=== PATIENT | male | born 1940 | race Caucasian/White ===

== ENCOUNTER → 2023-12-17 | Outpatient (CLI) | payer MEDICARE ==
--- NOTE | 2023-12-17 11:49 | US ---
EXAMINATION TYPE: US abdomen limited DATE OF EXAM: 12/17/2023 COMPARISON: NONE CLINICAL INDICATION: Male, 83 years old with history of R18.8 OTHER ASCITES; Patient states office fe lt he gained more weight, he disagrees but has some abdominal fullness. FINDINGS/IMPRESSION: All four quadrants scanned with no fluid collections seen. No ascites identified . [facility], , 12/17/2023 11:46 AM
== END | disposition home or self-care (01) ==
LOC: RADUSWWP 09:57
PROVIDERS: ATTEND Family Medicine
DX: R18.8 Other ascites (principal)
CPT/HCPCS: 76705

== ENCOUNTER → 2024-02-03 | Outpatient (CLI) | payer MEDICARE ==
--- NOTE | 2024-02-04 08:42 | US ---
EXAMINATION TYPE: US abdomen limited DATE OF EXAM: 02/03/2024 COMPARISON: NONE CLINICAL INDICATION: Male, 83 years old with history of K40.90 INGUINAL HERNIA LEFT; LLQ palp x 1 mon th TECHNIQUE: Grayscale with or without color Doppler imaging of the area of hernia concern. Real-time scanning was performed by the jewish history professor utilizing Valsalva and additional dynamic maneuve rs to assess for hernia. FINDINGS: Assess for hernia at location of: patients area of concern corresponds to spigelian area there is a 11.2x1.5x6.6cm fat and peristalsing bowel containing hernia at patients palpable area with a neck measuring up to 2.7 cm. The hernia is exaggerated with valsalva maneuver and partially reduci ble with transducer compression IMPRESSION: Hernia as above. [facility], , 02/04/2024 8:40 AM
== END | disposition home or self-care (01) ==
LOC: RADUSWWP 15:03
PROVIDERS: ATTEND Family Medicine
DX: K40.90 Unilateral inguinal hernia, without obstruction or gangrene, not specified as recurrent (principal)
CPT/HCPCS: 76705

== ENCOUNTER → 2024-06-09 | Outpatient (CLI) | payer MEDICARE ==
[2024-06-09 14:03] LABS: African American GFR (CKD) 46 (>60 ml/min/1.73 sqM); Blood Urea Nitrogen 29 mg/dL (9-20); Non-African American GFR(CKD) 39 (>60 ml/min/1.73 sqM)
--- NOTE | 2024-06-09 14:59 | CT ---
EXAMINATION TYPE: CT abdomen pelvis w con DATE OF EXAM: 06/09/2024 COMPARISON: None CLINICAL INDICATION: Male, 84 years old with history of K57.32 DVTRCLI R19.00 STOMACH MASS; PHH, abdo sincere mass, diverticulitis TECHNIQUE: Performed with Oral Contrast and with IV Contrast, patient injected with 80 ml mL of Isovue 300. CT DLP: [address] CTDI: mGy Automated exposure control for dose reduction was used. Findings: The lung bases are clear. There is a small hiatal hernia. The gallbladder is normal without distention, wall thickening, pericholecystic fluid or gallstones. T here is no biliary ductal dilatation. There is no focal mass or organomegaly involving the liver, pancreas, spleen or adrenal glands. There is no solid renal mass or hydronephrosis and there is homogeneous contrast enhancement of the r enal parenchyma. The caliber the abdominal aorta is normal is no retroperitoneal adenopathy or hemorrhage. There is a n IVC filter which appears to be in satisfactory position. The mid to proximal small bowel is mildly dilated consistent with a partial bowel obstruction. There is a left lower quadrant hernia measuring approximate 8.9 cm. It contains multiple small bowel loops but there is no evidence of strangulation. The dilated small bowel is proximal to the hernia and ther efore is likely the cause of the partial small bowel obstruction. There is a 4.2 cm left indirect inguinal hernia containing fluid but no bowel. There is no free intraperitoneal air. No pelvic mass, free fluid, abscess or adenopathy. There is mild prostatic hypertrophy. The osseous structures and soft tissues are intact. IMPRESSION: 1. Partial small bowel obstruction likely secondary to the left lower quadrant hernia containing nons trangulated or dilated loops of bowel. 2. Small hiatal hernia. 3. Left inguinal hernia containing fluid but no bowel loops. 4. Mild prostatic hypertrophy [facility], , 06/09/2024 2:57 PM
== END | disposition home or self-care (01) ==
LOC: RADCTMAIN 12:37
PROVIDERS: ATTEND Surgery
DX: K57.32 Diverticulitis of large intestine without perforation or abscess without bleeding (principal); K44.9 Diaphragmatic hernia without obstruction or gangrene; K40.90 Unilateral inguinal hernia, without obstruction or gangrene, not specified as recurrent; N40.0 Benign prostatic hyperplasia without lower urinary tract symptoms; K56.600 Partial intestinal obstruction, unspecified as to cause
CPT/HCPCS: 82565; 84520; 74177; 36415; Q9967

== ENCOUNTER 2024-06-16 09:31 | Observation (INO) | payer MEDICARE ==
--- NOTE | 2024-06-16 10:14 | ED ---
GI Bleed HPI - General Chief complaint: GI Bleed Stated complaint: NVD/HERNIA Time Seen by Provider: 06/16/24 09:50 Source: patient, RN notes reviewed Mode of arrival: ambulatory Limitations: no limitations - History of Present Illness Initial comments: This is an 84-year-old male presenting with LLQ pain (11/16) and blood in stool this morning. Patient was sent in by his PCP, Dr. Willis. States symptoms originally began February 09, 2024. Endorses "slimy liquid" and blood in stool and associated "gas pain" described as sharp, intermittent that resolves with Gas-X. Patient endorses receiving CT scan on 06/09/2024 with discovery of LLQ partial small bowel obstruction, left inguinal hernia and hiatal hernia. Patient endorses use of warfarin. MD complaint: blood streaked stool Onset/Timin -: days(s) Severity scale (1-10): 9 Improves with: medication (Gas-X) Context: other (History of hernia) Associated Symptoms: abdominal pain Treatments Prior to Arrival: OTC meds - Related Data Home Medications Medication Instructions Recorded Confirmed Atorvastatin [Lipitor] 80 mg PO HS 06/16/24 06/16/24 Fluticasone/Umeclidin/Vilanter 1 puff INHALATION RT-DAILY 06/16/24 06/16/24 [Trelegy Ellipta 100-62.5-25] Furosemide [Lasix] 20 mg PO DAILY 06/16/24 06/16/24 Metoprolol Succinate [Metoprolol 25 mg PO HS 06/16/24 06/16/24 Succinate ER] Warfarin [Coumadin] 3 mg PO SUMOWETHSA 06/16/24 06/16/24 Warfarin [Coumadin] 4.5 mg PO TU 06/16/24 06/16/24 amLODIPine [Norvasc] 5 mg PO DAILY 06/16/24 06/16/24 Previous Rx's Medication Instructions Recorded Simethicone [Gas-X] 125 mg PO Q6H PRN #30 capsule 06/16/24 Allergies Allergy/AdvReac Type Severity Reaction Status Date / Time No Known Allergies Allergy Verified 06/16/24 16:41 Review of Systems ROS Statement: Those systems with pertinent positive or pertinent negative responses have been documented in the HPI. ROS Other: All systems not noted in ROS Statement are negative. Past Medical History Past Medical History: Hyperlipidemia, Hypertension, Myocardial Infarction ([place]) Additional Past Medical History / Comment(s): hernia Past Surgical History: Heart Catheterization With Stent, Joint Replacement Past Psychological History: No Psychological Hx Reported Smoking Status: Current every day smoker Past Alcohol Use History: None Reported Past Drug Use History: None Reported General Exam Limitations: no limitations General appearance: alert, in no apparent distress Head exam: Present: atraumatic, normocephalic, normal inspection Eye exam: Present: normal appearance, PERRL, EOMI. Absent: scleral icterus, conjunctival injection, periorbital swelling ENT exam: Present: normal exam, mucous membranes moist Neck exam: Present: normal inspection. Absent: tenderness, meningismus, lymphadenopathy Respiratory exam: Present: normal lung sounds bilaterally. Absent: respiratory distress, wheezes, rales, rhonchi, stridor Cardiovascular Exam: Present: regular rate, normal rhythm, normal heart sounds. Absent: systolic murmur, diastolic murmur, rubs, gallop, clicks GI/Abdominal exam: Present: soft, tenderness (Positive LLQ TTP with voluntary guarding. Nontender throughout remainder of abdomen), guarding, normal bowel sounds, hernia (Palpable inguinal hernia with minor tenderness that seems to be reducible). Absent: distended, rebound, rigid Rectal exam: Present: normal rectal tone, heme (+) stool, bloody stool. Absent: fecal impaction, hemorrhoids, tenderness Extremities exam: Present: normal inspection, full ROM, normal capillary refill. Absent: tenderness, pedal edema, joint swelling, calf tenderness Back exam: Present: normal inspection Neurological exam: Present: alert, oriented X3, CN II-XII intact Psychiatric exam: Present: normal affect, normal mood Skin exam: Present: warm, dry, intact, normal color. Absent: rash Course Vital Signs 06/16/24 06/16/24 06/16/24 09:50 16:00 18:19 Temperature 97.4 F L 97.9 F 97.8 F Pulse Rate 70 60 69 Respiratory 22 16 Rate Blood Pressure 123/70 134/72 116/68 O2 Sat by Pulse 95 96 95 Oximetry Medical Decision Making - Medical Decision Making Was pt. sent in by a medical professional or institution (, PA, SPECIAL DEPUTY SHERIFF, urgent care, hospital, or long term...) When possible be specific @ -Dr. Willis Did you speak to anyone other than the patient for history (EMS, parent, family, police, friend...)? What history was obtained from this source @ -No Did you review nursing and triage notes (agree or disagree)? Why? @ -I reviewed and agree with nursing and triage notes Were old charts reviewed (outside hosp., previous admission, EMS record, old EKG, old radiological studies, urgent care reports/EKG's, long term records)? Report findings @ -Abdominal/pelvic CT from 06/09/2024 reviewed, indicating LLQ SBO and inguinal hernia Differential Diagnosis (chest pain, altered mental status, abdominal pain women, abdominal pain men, vaginal bleeding, weakness, fever, dyspnea, syncope, headache, dizziness, GI bleed, back pain, seizure, CVA, palpatations, mental health, musculoskeletal)? @ -Differential Abdominal Pain Men: Appendicitis, cholecystitis, diverticulosis, ischemic bowel, pancreatitis, hepatitis, UTI, gastroenteritis, AAA, incarcerated hernia, bowel obstruction, constipation, inflammatory bowel, hepatitis, peptic ulcer disease, splenic infarction, perforated viscus, testicular torsion, this is not meant to be an all-inclusive list Differential GI Bleed: Esophageal varices, aortoenteric fistula, Pascale-Huang, gastritis, peptic ulcer disease, diverticulosis, inflammatory bowel disease, hemorrhoids, fissure, colitis, malignancy, Meckel's diverticulum, this is not meant to be an all- inclusive list. EKG interpreted by me (3pts min.). @ -Not done X-rays interpreted by me (1pt min.). @ -None done CT interpreted by me (1pt min.). @ -Abdomen/pelvic CT shows LLQ hernia with focal mild acute diverticulitis at the same level with no indications of bowel obstruction. U/S interpreted by me (1pt. min.). @ -None done What testing was considered but not performed or refused? (CT, X-rays, U/S, labs)? Why? @ -None What meds were considered but not given or refused? Why? @ -None Did you discuss the management of the patient with other professionals (professionals i.e. , PA, SPECIAL DEPUTY SHERIFF, lab, RT, psych nurse, social work msw, retail maintenance technician, teacher, chief marketing officer, case finishing machine adjuster)? Give summary @ -Spoke to Dr. Willis who advised repeat CT and requesting and personally evaluated patient before deciding to admit patient. Spoke to Dr. Fletcher from [facility] regarding patient admission. Was smoking cessation discussed for >3mins.? @ -No Was critical care preformed (if so, how long)? @ -No Were there social determinants of health that impacted care today? How? (Homelessness, low income, unemployed, alcoholism, drug addiction, transportation, low edu. Level, literacy, decrease access to med. care, skilled nursing, rehab)? @ -No Was there de-escalation of care discussed even if they declined (Discuss DNR or withdrawal of care, Hospice)? DNR status @ -No What co-morbidities impacted this encounter? (DM, HTN, Smoking, COPD, CAD, Cancer, CVA, ARF, Chemo, Hep., AIDS, mental health diagnosis, sleep apnea, morbid obesity)? @ -None Was patient admitted / discharged? Hospital course, mention meds given and route, prescriptions, significant lab abnormalities, going to OR and other pertinent info. @ -Lab work shows INR 2.8, BUN 23 and positive stool occult blood. Spoke to Dr. Willis by phone who advised repeat CT for patient. Abdomen/pelvic CT shows LLQ hernia with focal mild acute diverticulitis at the same level with no indications of bowel obstruction. Patient initially provided IV normal saline and later provided p.o. Mylicon upon request for pain. Spoke to Dr. Willis again who personally evaluated patient, advising admission of patient under his care. Dr. Fletcher from [facility] notified of patient admission under Dr. Willis. Discussed patient with Dr. Thorne. Undiagnosed new problem with uncertain prognosis? @ -No Drug Therapy requiring intensive monitoring for toxicity (Heparin, Nitro, Ins ulin, Cardizem)? @ -No Were any procedures done? @ -No Diagnosis/symptom? @ -Diverticulitis Acute, or Chronic, or Acute on Chronic? @ -Acute on chronic Uncomplicated (without systemic symptoms) or Complicated (systemic symptoms)? @ -Complicated Side effects of treatment? @ -No Exacerbation, Progression, or Severe Exacerbation? @ -Exacerbation Poses a threat to life or bodily function? How? (Chest pain, [place], [place], pneumonia, PE, COPD, DKA, ARF, appy, cholecystitis, CVA, Diverticulitis, Homicidal, S uicidal, threat to staff... and all critical care pts) @ -Diverticulitis - Lab Data Result diagrams: 06/16/24 10:55 06/16/24 10:55 Lab Results 06/16/24 06/16/24 06/16/24 Range/Units 10:55 10:55 10:55 WBC 5.92 (4.50-10.00) 10*3/uL RBC 5.35 (4.40-5.60) 10*6/uL Hgb 16.2 (13.0-17.0) g/dL Hct 47.5 (39.6-50.0) % MCV 88.8 (80.0-97.0) fL MCH 30.3 (27.0-32.0) pg MCHC 34.1 (32.0-37.0) g/dL Plt Count 250 (140-440) 10*3/uL MPV 9.6 (9.5-12.2) fL Immature Gran % (Auto) 0.3 % Neutrophils % 66.0 % Lymphocytes % 18.2 % Monocytes % 10.1 % Eosinophils % 4.2 % Basophils % 1.2 % Immature Gran # 0.02 (0.00-0.04) 10*3/uL Neutrophils # 3.90 (1.80-7.70) 10*3/uL Lymphocytes # 1.08 (0.90-5.00) 10*3/uL Monocytes # 0.60 (0.20-1.00) 10*3/uL Eosinophils # 0.25 (0.04-0.35) 10*3/uL Basophils # 0.07 (0.00-0.10) 10*3/uL PT 28.2 H (10.0-12.5) sec INR 2.8 H (<1.2) APTT 30.9 H (22.0-30.0) sec Sodium 136 L (137-145) mmol/L Potassium 4.3 (3.5-5.1) mmol/L Chloride 104 (98-107) mmol/L Carbon Dioxide 26 (22-30) mmol/L Anion Gap 6 mmol/L BUN 23 H (9-20) mg/dL Creatinine 1.24 (0.66-1.25) mg/dL Est GFR (CKD-EPI)AfAm 62 (>60 ml/min/1.73 sqM) Est GFR (CKD-EPI)NonAf 53 (>60 ml/min/1.73 sqM) Glucose 99 (74-99) mg/dL Plasma Lactic Acid Luis Alfredo (0.7-2.0) mmol/L Calcium 9.8 (8.4-10.2) mg/dL Total Bilirubin 0.8 (0.2-1.3) mg/dL AST 36 (17-59) U/L ALT 30 (4-49) U/L Alkaline Phosphatase 75 (38-126) U/L Total Protein 6.7 (6.3-8.2) g/dL Albumin 3.9 (3.5-5.0) g/dL Stool Occult Blood (Negative) Blood Type Blood Type Confirm Blood Type Recheck Bld Type Recheck Status Antibody Screen Spec Expiration Date 06/16/24 06/16/24 06/16/24 Range/Units 10:55 11:02 11:05 WBC (4.50-10.00) 10*3/uL RBC (4.40-5.60) 10*6/uL Hgb (13.0-17.0) g/dL Hct (39.6-50.0) % MCV (80.0-97.0) fL MCH (27.0-32.0) pg MCHC (32.0-37.0) g/dL Plt Count (140-440) 10*3/uL MPV (9.5-12.2) fL Immature Gran % (Auto) % Neutrophils % % Lymphocytes % % Monocytes % % Eosinophils % % Basophils % % Immature Gran # (0.00-0.04) 10*3/uL Neutrophils # (1.80-7.70) 10*3/uL Lymphocytes # (0.90-5.00) 10*3/uL Monocytes # (0.20-1.00) 10*3/uL Eosinophils # (0.04-0.35) 10*3/uL Basophils # (0.00-0.10) 10*3/uL PT (10.0-12.5) sec INR (<1.2) APTT (22.0-30.0) sec Sodium (137-145) mmol/L Potassium (3.5-5.1) mmol/L Chloride (98-107) mmol/L Carbon Dioxide (22-30) mmol/L Anion Gap mmol/L BUN (9-20) mg/dL Creatinine (0.66-1.25) mg/dL Est GFR (CKD-EPI)AfAm (>60 ml/min/1.73 sqM) Est GFR (CKD-EPI)NonAf (>60 ml/min/1.73 sqM) Glucose (74-99) mg/dL Plasma Lactic Acid Luis Alfredo 1.6 (0.7-2.0) mmol/L Calcium (8.4-10.2) mg/dL Total Bilirubin (0.2-1.3) mg/dL AST (17-59) U/L ALT (4-49) U/L Alkaline Phosphatase (38-126) U/L Total Protein (6.3-8.2) g/dL Albumin (3.5-5.0) g/dL Stool Occult Blood positive (Negative) Blood Type A Negative Blood Type Confirm Blood Type Recheck No Previous Record Bld Type Recheck Status CABO Indicated Antibody Screen NEGATIVE Spec Expiration Date 06/19/2024 - 230406/16/24 Range/Units 11:12 WBC (4.50-10.00) 10*3/uL RBC (4.40-5.60) 10*6/uL Hgb (13.0-17.0) g/dL Hct (39.6-50.0) % MCV (80.0-97.0) fL MCH (27.0-32.0) pg MCHC (32.0-37.0) g/dL Plt Count (140-440) 10*3/uL MPV (9.5-12.2) fL Immature Gran % (Auto) % Neutrophils % % Lymphocytes % % Monocytes % % Eosinophils % % Basophils % % Immature Gran # (0.00-0.04) 10*3/uL Neutrophils # (1.80-7.70) 10*3/uL Lymphocytes # (0.90-5.00) 10*3/uL Monocytes # (0.20-1.00) 10*3/uL Eosinophils # (0.04-0.35) 10*3/uL Basophils # (0.00-0.10) 10*3/uL PT (10.0-12.5) sec INR (<1.2) APTT (22.0-30.0) sec Sodium (137-145) mmol/L Potassium (3.5-5.1) mmol/L Chloride (98-107) mmol/L Carbon Dioxide (22-30) mmol/L Anion Gap mmol/L BUN (9-20) mg/dL Creatinine (0.66-1.25) mg/dL Est GFR (CKD-EPI)AfAm (>60 ml/min/1.73 sqM) Est GFR (CKD-EPI)NonAf (>60 ml/min/1.73 sqM) Glucose (74-99) mg/dL Plasma Lactic Acid Luis Alfredo (0.7-2.0) mmol/L Calcium (8.4-10.2) mg/dL Total Bilirubin (0.2-1.3) mg/dL AST (17-59) U/L ALT (4-49) U/L Alkaline Phosphatase (38-126) U/L Total Protein (6.3-8.2) g/dL Albumin (3.5-5.0) g/dL Stool Occult Blood (Negative) Blood Type Blood Type Confirm A Negative Blood Type Recheck Bld Type Recheck Status Antibody Screen Spec Expiration Date Disposition Clinical Impression: Diverticulitis Disposition: ADMITTED IP TO THIS [facility] Condition: Good Is patient prescribed a controlled substance at d/c from ED?: No Time of Disposition: 15:02 Decision Date: 06/16/24 Decision Time: 15:02
[2024-06-16 11:03] LABS: Basophils # (A) 0.07 10*3/uL (0.00-0.10); Basophils % (A) 1.2 %; Eosinophils # (A) 0.25 10*3/uL (0.04-0.35); Eosinophils % (A) 4.2 %; HCT 47.5 % (39.6-50.0); HGB 16.2 g/dL (13.0-17.0); Lymphocytes # (A) 1.08 10*3/uL (0.90-5.00); Lymphocytes % (A) 18.2 %; MCH 30.3 pg (27.0-32.0); MCHC 34.1 g/dL (32.0-37.0); MCV 88.8 fL (80.0-97.0); Mean Platelet Volume 9.6 fL (9.5-12.2); Monocytes % (A) 10.1 %; Platelet Count 250 10*3/uL (140-440); RBC 5.35 10*6/uL (4.40-5.60); RDW 15.2 % (11.5-14.5); WBC 5.92 10*3/uL (4.50-10.00)
[2024-06-16 11:16] LABS: INR 2.8 (<1.2); Partial Thromboplastin Time 30.9 sec (22.0-30.0); Prothrombin Time 28.2 sec (10.0-12.5)
[2024-06-16] MEDS: SODIUM CHLORIDE 0.9% 1,000 ML IV STA (11:16)
[2024-06-16 11:18] LABS: ALT 30 U/L (4-49); AST 36 U/L (17-59); African American GFR (CKD) 62 (>60 ml/min/1.73 sqM); Albumin 3.9 g/dL (3.5-5.0); Alkaline Phosphatase 75 U/L (38-126); Anion Gap 6 mmol/L; Blood Urea Nitrogen 23 mg/dL (9-20); Calcium 9.8 mg/dL (8.4-10.2); Carbon Dioxide 26 mmol/L (22-30); Chloride 104 mmol/L (98-107); Glucose 99 mg/dL (74-99); Non-African American GFR(CKD) 53 (>60 ml/min/1.73 sqM); Potassium 4.3 mmol/L (3.5-5.1); Sodium 136 mmol/L (137-145); Total Bilirubin 0.8 mg/dL (0.2-1.3); Total Protein 6.7 g/dL (6.3-8.2)
--- NOTE | 2024-06-16 12:09 | CT ---
EXAMINATION TYPE: CT abdomen pelvis w con DATE OF EXAM: 06/16/2024 COMPARISON: CT one week ago CLINICAL INDICATION: Male, 84 years old with history of Hematochezia, LLQ pain, hematochezia, llq marky n, TECHNIQUE: CT scan of the abdomen and pelvis is performed with IV Contrast, patient injected with 100 ml mL of I sovue 300., (none if empty) Oral contrast used: without Oral Contrast (none if empty) CT DLP: 1048.7 mGycm, Automated exposure control for dose reduction was used. FINDINGS: LUNG BASES: No significant abnormality is appreciated. LIVER/GB: Internal density in the gallbladder likely reflects gallstones. This can be confirmed or be tter evaluated with ultrasound if desired. Gallbladder shows no new surrounding ill-defined fluid or fat stranding. PANCREAS: No significant abnormality is seen. SPLEEN: A few punctate calcifications throughout the spleen. There is curvilinear density or calcific ation along the superior outer aspect of the spleen. Correlate clinically. Suspect sutures from prior surgery ADRENALS: No significant abnormality is seen. KIDNEYS: There are a few small simple appearing thin-walled cysts scattered throughout the right kidn ey redemonstrated. No hydronephrosis seen bilaterally. BOWEL: Persistent incidental 3.7 cm duodenal sweep diverticulum next image 27. Persistent left lower quadrant hernia defect containing nondilated colon. A few diverticula at this level are present. Mild fat stranding is seen PROSTATE/SEMINAL VESICLES: No gross abnormality seen. LYMPH NODES: No greater than 1cm abdominal or pelvic lymph nodes are appreciated. OSSEOUS STRUCTURES: Metallic hardware from total right hip arthroplasty is redemonstrated causing str eak artifact somewhat limiting evaluation of pelvic structures. Persistent moderate to severe disc sp katharine narrowing at the lumbosacral junction. OTHER: Moderate to severe peripheral plaque of the aorta extends into branch vessels. Infrarenal IVC filter is redemonstrated. Persistent moderate to large size fat-containing left inguinal hernia witho ut fluid on current study. 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 No bowel obstruction. [facility], , 06/16/2024 12:07 PM
[2024-06-16] MEDS ORDERED: ACETAMINOPHEN TAB 325 MG TAB PO PRN (14:53)
[2024-06-16] MEDS ORDERED: traMADol 50 MG TAB PO PRN (14:53)
[2024-06-16] MEDS ORDERED: HYDROmorphone 0.5 MG/0.5 ML SYRINGE IVP PRN (14:53)
--- NOTE | 2024-06-16 15:06 | P.HPIM ---
History of Present Illness This is a pleasant 84 years old male with past medical history of multiple medical problems as below including history of coronary artery disease status post stent placement. Presents because of blood per rectum. Patient has been complaining from left lower quadrant abdominal pain for several weeks and months now has been followed by Dr. Baron. And today he started having bright red blood blood per rectum so he got concerned and came to the emergency room. He denies chest pain or dyspnea. No vomiting or diarrhea. No urinary complaint like urgency. He smokes 3 to 4 cigarettes/day and he was counseled to quit and he agrees but he declines nicotine patch. No alcohol or illicit drugs. Patient takes Coumadin 3 mg except 3.5 mg for his history of left leg DVT about 12 years ago He is hemodynamically stable and afebrile, mildly tachypneic. Hemoglobin 16.2, INR is 2.8 CT of the abdomen and pelvis showing moderate to severe peripheral plaque of the abdominal aorta extending into branching vessels. Also there is possible gallstone. Also there is infrarenal IVC filter in place. There is persistent left lower quadrant spigelian type hernia with focal mild acute diverticulitis. Occult blood in the stool is positive. Lactic acid 1.6. Review of Systems Review of systems CONSTITUTIONAL: No fever, no malaise, no fatigue. HEENT: No recent visual problems or hearing problems. Denied any sore throat. CARDIOVASCULAR: No orthopnea, PND, no palpitations, no syncope. PULMONARY: No shortness of breath, no cough, no hemoptysis. GASTROINTESTINAL: No diarrhea, no nausea, no vomiting, Normoactive bowel sounds. NEUROLOGICAL: No headaches, no weakness, no numbness. HEMATOLOGICAL: As above GENITOURINARY: Denies any burning micturition, frequency, or urgency. MUSCULOSKELETAL/RHEUMATOLOGICAL: Denies any joint pain, swelling, or any muscle pain. ENDOCRINE: Denies any polyuria or polydipsia. Past Medical History Past Medical History: Hyperlipidemia, Hypertension, Myocardial Infarction ([place]) Additional Past Medical History / Comment(s): hernia Past Surgical History: Heart Catheterization With Stent, Joint Replacement Past Psychological History: No Psychological Hx Reported Smoking Status: Current every day smoker Past Alcohol Use History: None Reported Past Drug Use History: None Reported Medications and Allergies Home Medications Medication Instructions Recorded Confirmed Type Simethicone [Gas-X] 125 mg PO Q6H PRN #30 capsule 06/16/24 Rx Allergies Allergy/AdvReac Type Severity Reaction Status Date / Time No Known Allergies Allergy Verified 06/16/24 09:56 Physical Exam Vitals: Vital Signs Temp Pulse Resp BP Pulse Ox 06/16/24 09:50 97.4 F L 70 22 123/70 95 Intake and Output 06/15/24 06/16/24 06/16/24 22:59 06:59 14:59 Other: Weight 81.647 kg GENERAL: The patient is alert and oriented x3, not in any acute distress. Well developed, well nourished. HEENT: Pupils are round and equally reacting to light. EOMI. No scleral icterus. No conjunctival pallor. Normocephalic, atraumatic. No pharyngeal erythema. No thyromegaly. CARDIOVASCULAR: S1 and S2 present. No murmurs, rubs, or gallops. -PULMONARY: Chest is clear to auscultation, no wheezing , no crackles. Mild tachypnea -ABDOMEN: Soft, LLQ tenderness, with mild guarding nondistended, normoactive bowel sounds. No palpable organomegaly. MUSCULOSKELETAL: No joint swelling or deformity. EXTREMITIES: No cyanosis, clubbing, or pedal edema. NEUROLOGICAL: Gross neurological examination did not reveal any focal deficits. SKIN: No rashes. no petechiae. Results CBC & Chem 7: 06/16/24 10:55 06/16/24 10:55 Labs: Abnormal Lab Results - Last 24 Hours (Table) 06/16/24 06/16/24 Range/Units 10:55 10:55 PT 28.2 H (10.0-12.5) sec INR 2.8 H (<1.2) APTT 30.9 H (22.0-30.0) sec Sodium 136 L (137-145) mmol/L BUN 23 H (9-20) mg/dL Assessment and Plan Assessment: Left lower quadrant spigelian type hernia with focal mild acute diverticulitis Bright red blood per rectum secondary to above Nicotine dependence Tachypnea, rule out COPD, rule out pneumonia. History of left leg DVT on Coumadin with therapeutic INR on admission Plan: Hold Coumadin Surgery team consult with Dr. Baron Bowel rest IV fluid Check chest x-ray Pain medication Labs and medication were reviewed.. Continue same treatment. Continue with symptomatic treatment. Resume home medication. Monitor labs and vitals. DVT and GI prophylaxis. Further recommendations as per clinical course of the patient DVT prophylaxis: Elevated INR GI Prophylaxis: Pepcid PT/OT: Pending Prognosis is guarded
[2024-06-16] MEDS ORDERED: NALOXONE 0.4 MG/ML 1 ML VIAL IV PRN ×2 (15:13→15:26)
--- NOTE | 2024-06-16 15:29 | P.GSHP ---
History of Present Illness H&P Date: 06/16/24 Chief Complaint: GI bleed 84-year-old male known to our service. Patient was seen in the office in the last 1 to 2 weeks with left lower quadrant pain and swelling. A CAT scan was ordered to evaluate the fascial defect suspected. 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 He had a CAT scan performed last week showing small bowel within the hernia. This was thought to be contributing to mild proximal small bowel dilation although the patient was not really having any nausea or vomiting. He does have intermittent constipation. Patient and I were in the process of setting up surgical repair. Today he called stating that he had some blood in his stools. He went to the ER with those complaints. He does think the hernia is hurting a bit more today than normal. CAT scan was repeated showing the small bowel no longer present within the spigelian hernia but now there is a small loop of sigmoid colon there. This does not appear to be obstructed. There is very subtle possible inflammation involving the sigmoid colon there and associated diverticulosis. Patient was started on IV antibiotics. White blood cell count normal. No fever. No tachycardia. Jose daugherty had primarily 1 bloody stool this morning. Patient has his jeans on and is walking around the hallway looking comfortable. INR elevated at 2.8. Patient is on blood thinners for history of previous left lower extremity DVT. - Review of Systems Comment: The patient denies any acute changes in vision or hearing, no dysphagia or odynophagia, no chest pain or shortness of breath, no dysuria or hematuria, no headache, no runny nose, no melena, no unexplained weight loss Past Medical History Past Medical History: Hyperlipidemia, Hypertension, Myocardial Infarction ([place]) Additional Past Medical History / Comment(s): hernia Past Surgical History: Heart Catheterization With Stent, Joint Replacement Past Psychological History: No Psychological Hx Reported Smoking Status: Current every day smoker Past Alcohol Use History: None Reported Past Drug Use History: None Reported Medications and Allergies Home Medications Medication Instructions Recorded Confirmed Type Simethicone [Gas-X] 125 mg PO Q6H PRN #30 capsule 06/16/24 Rx Allergies Allergy/AdvReac Type Severity Reaction Status Date / Time No Known Allergies Allergy Verified 06/16/24 09:56 Surgical - Exam Vital Signs Temp Pulse Resp BP Pulse Ox 97.4 F L 70 22 123/70 95 06/16/24 09:50 06/16/24 09:50 06/16/24 09:50 06/16/24 09:50 06/16/24 09:50 Physical exam: General: Well-developed, well-nourished HEENT: Normocephalic, sclerae nonicteric Abdomen: Reducible left-sided abdominal wall hernia, mild to moderate tenderness there, nondistended Extremities: No edema Neuro: Alert and oriented Results - Labs 06/16/24 10:55 06/16/24 10:55 Abnormal Lab Results - Last 24 Hours (Table) 06/16/24 06/16/24 Range/Units 10:55 10:55 PT 28.2 H (10.0-12.5) sec INR 2.8 H (<1.2) APTT 30.9 H (22.0-30.0) sec Sodium 136 L (137-145) mmol/L BUN 23 H (9-20) mg/dL Diabetes panel 06/16/24 Range/Units 10:55 Sodium 136 L (137-145) mmol/L Potassium 4.3 (3.5-5.1) mmol/L Chloride 104 (98-107) mmol/L Carbon Dioxide 26 (22-30) mmol/L BUN 23 H (9-20) mg/dL Creatinine 1.24 (0.66-1.25) mg/dL Glucose 99 (74-99) mg/dL Calcium 9.8 (8.4-10.2) mg/dL AST 36 (17-59) U/L ALT 30 (4-49) U/L Alkaline Phosphatase 75 (38-126) U/L Total Protein 6.7 (6.3-8.2) g/dL Albumin 3.9 (3.5-5.0) g/dL Calcium panel 06/16/24 Range/Units 10:55 Calcium 9.8 (8.4-10.2) mg/dL Albumin 3.9 (3.5-5.0) g/dL Pituitary panel 06/16/24 Range/Units 10:55 Sodium 136 L (137-145) mmol/L Potassium 4.3 (3.5-5.1) mmol/L Chloride 104 (98-107) mmol/L Carbon Dioxide 26 (22-30) mmol/L BUN 23 H (9-20) mg/dL Creatinine 1.24 (0.66-1.25) mg/dL Glucose 99 (74-99) mg/dL Calcium 9.8 (8.4-10.2) mg/dL Adrenal panel 06/16/24 Range/Units 10:55 Sodium 136 L (137-145) mmol/L Potassium 4.3 (3.5-5.1) mmol/L Chloride 104 (98-107) mmol/L Carbon Dioxide 26 (22-30) mmol/L BUN 23 H (9-20) mg/dL Creatinine 1.24 (0.66-1.25) mg/dL Glucose 99 (74-99) mg/dL Calcium 9.8 (8.4-10.2) mg/dL Total Bilirubin 0.8 (0.2-1.3) mg/dL AST 36 (17-59) U/L ALT 30 (4-49) U/L Alkaline Phosphatase 75 (38-126) U/L Total Protein 6.7 (6.3-8.2) g/dL Albumin 3.9 (3.5-5.0) g/dL Assessment and Plan (1) Diverticulitis Narrative/Plan: 84-year-old male presents to the hospital with pain at his hernia site and blood in stool. Etiology could be related to mild diverticulitis involving the loop of colon that is adjacent to and within the hernia sac. Given the degree of tenderness on exam favor inpatient observation. Continue IV antibiotics. Clear liquid diet. Hold Coumadin for now. Will monitor degree of bleeding. Patient did have a Cologuard he believes about 4 years ago that was normal. Will be tentatively scheduling for laparoscopic versus open repair spigelian hernia in the next 1 to 2 weeks. Will ask for medical clearance for that surgery. Current Visit: Yes Status: Acute Code(s): K57.92 - DVTRCLI OF INTEST, PART UNSP, W/O PERF OR ABSCESS W/O BLEED SNOMED Code(s): 956256120
[2024-06-16] MEDS: PIPERACILLIN-TAZOBACTAM 3.375 GM in SODIUM CHLORIDE 0.9% 100 ML IVPB SCH (15:37)
[2024-06-16] MEDS: SIMETHICONE 80 MG CHEWABLE PO STA (15:47)
--- NOTE | 2024-06-16 16:01 | XR ---
EXAMINATION TYPE: XR chest 2V DATE OF EXAM: 06/16/2024 CLINICAL INDICATION: Male, 84 years old with history of sob, TECHNIQUE: Frontal and lateral views of the chest are obtained. COMPARISON: None FINDINGS: There is background chronic emphysematous change without suspicious focal air space opaci ty, pleural effusion, or pneumothorax seen. The cardiac silhouette size is within normal limits with atherosclerotic thoracic aorta. Bridging osteophytes in the thoracic spine are seen. IMPRESSION: Chronic emphysematous change without acute pulmonary process. [facility], , 06/16/2024 3:58 PM
[2024-06-16] MEDS: D5-0.45% NACL WITH KCL 20MEQ/L 1,000 ML IV SCH (16:16)
[2024-06-16] MEDS ORDERED: IPRATROPIUM-ALBUTEROL 3 ML NEB INHALATION PRN (17:42)
[2024-06-16] MEDS: IPRATROPIUM-ALBUTEROL 3 ML NEB INHALATION STA (18:37)
[2024-06-16] MEDS: FAMOTIDINE 20 MG/2 ML VIAL IV SCH (19:37)
[2024-06-16] MEDS: METOPROLOL SUCCINATE (ER) 25 MG TAB.ER.24H PO SCH (19:37)
[2024-06-16] MEDS: SYMBICORT 160-4.5 MCG INHALER INHALATION SCH (20:27)
[2024-06-16] MEDS ORDERED: HEPARIN SODIUM,PORCINE 5,000 UNIT/ML 1 ML VIAL SQ SCH (21:00)
[2024-06-17 03:11] LABS: Basophils # (A) 0.07 10*3/uL (0.00-0.10); Basophils % (A) 1.3 %; Eosinophils # (A) 0.25 10*3/uL (0.04-0.35); Eosinophils % (A) 4.7 %; HCT 44.7 % (39.6-50.0); HGB 14.8 g/dL (13.0-17.0); Lymphocytes # (A) 0.91 10*3/uL (0.90-5.00); Lymphocytes % (A) 17.1 %; MCH 29.4 pg (27.0-32.0); MCHC 33.1 g/dL (32.0-37.0); MCV 88.7 fL (80.0-97.0); Mean Platelet Volume 9.3 fL (9.5-12.2); Monocytes % (A) 11.3 %; Neutrophils # (A) 3.47 10*3/uL (1.80-7.70); Neutrophils % (A) 65.2 %; Platelet Count 232 10*3/uL (140-440); RBC 5.04 10*6/uL (4.40-5.60); RDW 15.5 % (11.5-14.5); WBC 5.32 10*3/uL (4.50-10.00)
[2024-06-17 03:34] LABS: African American GFR (CKD) 63 (>60 ml/min/1.73 sqM); Anion Gap 6 mmol/L; Blood Urea Nitrogen 16 mg/dL (9-20); Calcium 8.9 mg/dL (8.4-10.2); Carbon Dioxide 22 mmol/L (22-30); Chloride 107 mmol/L (98-107); Glucose 90 mg/dL (74-99); Non-African American GFR(CKD) 55 (>60 ml/min/1.73 sqM); Potassium 3.8 mmol/L (3.5-5.1); Sodium 135 mmol/L (137-145)
--- NOTE | 2024-06-17 10:52 | P.PN ---
Subjective Progress Note Date: 06/17/24 84-year-old man with PMH of hypertension, hyperlipidemia, history of DVT maintained on Coumadin and history of myocardial infarction with catheterization and stent placement. He presented to the emergency department because of bright red blood per rectum. He had been having complaints of left lower quadrant abdominal pain for several weeks/months and had been following with Dr. Willis. When he noticed bright red blood coming from his rectum he became concerned and was instructed to come to the emergency department to be admitted to the hospital for further evaluation. Patient reports absence of chest pain, dyspnea, vomiting, diarrhea, urinary complaints. 06/17 - He was seen and examined at bedside this morning. No acute events overnight and no complaints this morning. Notes that his bowel movements have changed to becoming darker with some spots of what he describes similar to gravel/coffee ground in appearance. The stools have additionally become looser. He denies any bright red blood in the stool. Additionally, he notes that his abdominal pain is improved some from when he first arrived. REVIEW OF SYSTEMS: Pertinent positives and negatives noted in HPI. Physical Exam: General: nontoxic, no distress, appears at stated age Derm: warm, dry, intact Head: atraumatic, normocephalic, symmetric Eyes: EOMI, anicteric sclera Mouth: no lip lesion, mucus membranes moist Cardiovascular: S1 S2 reg, no murmur, rubs, or gallops Lungs: CTA bilateral, no rales, no accessory muscle use Abdominal: soft, somewhat distended, tenderness to palpation of the lower left quadrant Extremities: no gross muscle atrophy, no edema, no contractures Neuro: Alert, Oriented, CNII-XII grossly intact, gait normal Psych: well appearing, appropriate affect Data Received Today: Labs: WBCs 5.32, hemoglobin 14.8, hematocrit 44.7, platelet 232; sodium 135, potassium 3.8, BUN 16, creatinine 1.21, calcium 8.9 Imagining: No new imaging today Assessment and plan 84-year-old man with PMH of hypertension, hyperlipidemia, history of DVT maintained on Coumadin and history of myocardial infarction with catheterization and stent placement. He presented to the emergency department because of bright red blood per rectum. #Left lower quadrant spigelian type hernia with focal mild acute diverticulitis adjacent to or within the hernia sac -Continue IV antibiotics -Clear liquid diet -Continue with Coumadin at this time -Tentative plan for laparoscopic vs open repair of the spigelian hernia within the next 1-2 weeks -Recommend early cessation of antibiotics #Hypertension -Home metoprolol 25 mg daily -Continue home Norvasc 5 mg daily #Hyperlipidemia -Continue Lipitor 80 mg nightly #History of DVT, maintained on Coumadin -Therapeutic INR on admission at 2.8 -Continue to hold warfarin at this time #Tobacco addiction -Currently smokes 3-4 cigarettes/day -Counseled patient on smoking cessation -He declined nicotine patch at this time #Perioperative Evaluation [facility] risk assessment - Risk of serious complication: 3.0% - Risk of any complication: 3.6% - Risk of cardiac application: 0.5% - Risk of : 0.3% He is currently optimized for surgery from a medicine standpoint. Will continue to follow for the duration of stay. Thank you very much for this consult. DVT ppx: Surgical team Code status: Full code F: D5 half-normal saline at 75 cc/h E: Replete as needed N: Clear liquid diet Anticipated discharge place: Home Anticipated discharge time: Pending clinical course Dictation was produced using [employer] dictation software. please excuse any grammatical, word or spelling errors. Anthony Conrad MD PGY-1 IM I have seen and evaluated the patient today. Discussed with the resident and agree with the residents finding and plan as documented in the resident's note. Changes highlighted in blue font. Objective - Vital Signs Vital signs: Vital Signs Temp 97.9 F 06/17/24 02:00 Pulse 68 06/17/24 02:00 Resp 15 06/17/24 02:00 BP 116/65 06/17/24 02:00 Pulse Ox 95 06/16/24 18:19 FiO2 Intake & Output 06/16/24 06/17/24 06/17/24 18:59 06:59 18:59 Intake Total 1700 Balance 1700 Weight 81.647 kg 81.647 kg Intake: Intake, IV Titration 1100 Amount D5-0.45% NaCl with KCl 900 20Meq/l 1,000 ml @ 75 mls /hr IV .[id number] ASHA Rx#: [id number] Piperacillin-Tazobactam 3 200 .375 gm In Sodium Chloride 0.9% 100 ml @ 25 mls/hr IVPB Q8H ASHA Rx#: [id number] Oral 600 Other: # Voids 2 - Labs CBC & Chem 7: 06/17/24 02:43 06/17/24 02:43 Labs: Abnormal Lab Results - Last 24 Hours (Table) 06/16/24 06/16/24 06/17/24 Range/Units 10:55 10:55 02:43 MPV 9.3 L (9.5-12.2) fL PT 28.2 H (10.0-12.5) sec INR 2.8 H (<1.2) APTT 30.9 H (22.0-30.0) sec Sodium 136 L (137-145) mmol/L BUN 23 H (9-20) mg/dL 06/17/24 Range/Units 02:43 MPV (9.5-12.2) fL PT (10.0-12.5) sec INR (<1.2) APTT (22.0-30.0) sec Sodium 135 L (137-145) mmol/L BUN (9-20) mg/dL
--- NOTE | 2024-06-17 11:58 | P.DS ---
Providers Date of admission: 06/16/24 15:36 Expected date of discharge: 06/17/24 Attending physician: Juan Willis Consults: 06/16/24 14:53 Consult Physician Routine Consulting Provider: Kyaw Fletcher Consult Reason/Comments: Medical management Do you want consulting provider notified?: Yes Primary care physician: Dell Morales Hospital Course: Discharge diagnosis 1. Left sided spigelian hernia containing sigmoid colon with diverticulitis involving the loop of colon Hospital course This is a 84-year-old male who presented to the hospital with complaints of abdominal pain with a small amount of blood in his stools. CT abdomen pelvis reports persistent left lower quadrant spigelian type hernia with focal mild acute diverticulitis at this level. No bowel obstruction. Patient started antibiotics. His pain has resolved. He is tolerating diet. He is afebrile. White count is normal hemoglobin stable at 14. He has not had no further blood in his stools. He is stable for discharge. Patient also seen by medical service and given medical clearance for surgery. Medicine service recommends patient being off of Coumadin for 5 days prior to surgery. Patient is stable for discharge. He will be discharged with oral antibiotics. Please refer to chart for any further details. Physician Pharmacy Clinical Coordinator note has been reviewed by physician. Signing provider agrees with the documented findings, assessment, and plan of care. Patient Condition at Discharge: Stable Plan - Discharge Summary Discharge Rx Participant: No New Discharge Prescriptions: New Simethicone [Gas-X] 125 mg PO Q6H PRN #30 capsule PRN Reason: Bloating Amoxic-Pot Clav 875-125Mg [Augmentin 875-125] 1 tab PO BID 10 Days #20 tab Continue Metoprolol Succinate [Metoprolol Succinate ER] 25 mg PO HS Atorvastatin [Lipitor] 80 mg PO HS Furosemide [Lasix] 20 mg PO DAILY amLODIPine [Norvasc] 5 mg PO DAILY Warfarin [Coumadin] 4.5 mg PO TU Warfarin [Coumadin] 3 mg PO SUMOWETHSA Fluticasone/Umeclidin/Vilanter [Trelegy Ellipta 100-62.5-25] 1 puff INHALA TION RT-DAILY Discharge Medication List Atorvastatin [Lipitor] 80 mg PO HS 06/16/24 [History] Fluticasone/Umeclidin/Vilanter [Trelegy Ellipta 100-62.5-25] 1 puff INHALATION R T-DAILY 06/16/24 [History] Furosemide [Lasix] 20 mg PO DAILY 06/16/24 [History] Metoprolol Succinate [Metoprolol Succinate ER] 25 mg PO HS 06/16/24 [History] Simethicone [Gas-X] 125 mg PO Q6H PRN #30 capsule 06/16/24 [Rx] Warfarin [Coumadin] 3 mg PO SUMOWETHSA 06/16/24 [History] Warfarin [Coumadin] 4.5 mg PO TU 06/16/24 [History] amLODIPine [Norvasc] 5 mg PO DAILY 06/16/24 [History] Amoxic-Pot Clav 875-125Mg [Augmentin 875-125] 1 tab PO BID 10 Days #20 tab 06/17/24 [Rx] Follow up Appointment(s)/Referral(s): Juan Willis MD [Medical Doctor] - 1-2 days Dell Morales MD [Primary Care Provider] - 1-2 days Patient Instructions/Handouts: Diverticulitis (DC) Activity/Diet/Wound Care/Special Instructions: Advance diet to full liquids today and then advance as tolerated Discharge Disposition: HOME SELF-CARE
[2024-06-17 12:11] VITALS: BP 145/75; PULSE 62; RESP 18; TEMP 97.5
[2024-06-17] MEDS ORDERED: ATORVASTATIN 80 MG TAB PO SCH (21:00)
[2024-06-18] MEDS ORDERED: amLODIPine 5 MG TAB PO SCH (09:00)
== END 2024-06-17 11:15 | disposition home or self-care (01) ==
LOC: EC 09:31 → 4SSUR 15:36 → 1SOBS 17:00
PROVIDERS: ADMIT Surgery; ATTEND Surgery
DX: K57.33 Diverticulitis of large intestine without perforation or abscess with bleeding (principal); K43.9 Ventral hernia without obstruction or gangrene; I25.10 Atherosclerotic heart disease of native coronary artery without angina pectoris; R06.82 Tachypnea, not elsewhere classified; R79.1 Abnormal coagulation profile; K59.00 Constipation, unspecified; I10 Essential (primary) hypertension; E78.5 Hyperlipidemia, unspecified; K40.90 Unilateral inguinal hernia, without obstruction or gangrene, not specified as recurrent; K44.9 Diaphragmatic hernia without obstruction or gangrene; F17.210 Nicotine dependence, cigarettes, uncomplicated; Z79.01 Long term (current) use of anticoagulants; Z79.51 Long term (current) use of inhaled steroids; Z79.899 Other long term (current) drug therapy; Z95.5 Presence of coronary angioplasty implant and graft; Z86.718 Personal history of other venous thrombosis and embolism; Z95.828 Presence of other vascular implants and grafts; Z71.6 Tobacco abuse counseling
CPT/HCPCS: 96366 ×3; 96375; 96361; 96365; 99285; 36415; 86900; 86901; 80053; 80048; 83605; 85025 ×2; 85610; 85730; 86850; 82272; 87040; 71046; 74177; G0378 ×3; J2543 ×2; J3490; Q9967

== ENCOUNTER → 2024-07-07 | Outpatient (CLI) | payer MEDICARE ==
[2024-07-07 20:37] LABS: Basophils # (A) 0.06 X 10*3/uL (0.00-0.10); Basophils % (A) 0.9 %; Eosinophils # (A) 0.32 X 10*3/uL (0.04-0.35); HCT 45.9 % (39.6-50.0); HGB 14.8 g/dL (13.0-17.0); Lymphocytes # (A) 1.26 X 10*3/uL (0.90-5.00); Lymphocytes % (A) 19.7 %; MCHC 32.2 g/dL (32.0-37.0); Mean Platelet Volume 10.7 FL (9.5-12.2); Monocytes # (A) 0.74 X 10*3/uL (0.20-1.00); Monocytes % (A) 11.6 %; NRBC Per 100 WBC 0 X 10*3/uL (0.00-0.01); Neutrophils # (A) 3.97 X 10*3/uL (1.80-7.70); Neutrophils % (A) 62.3 %; Platelet Count 246 X 10*3/uL (140-440); WBC 6.38 X 10*3/uL (4.50-10.00)
== END | disposition home or self-care (01) ==
LOC: LABWHC1 11:55
PROVIDERS: ATTEND Surgery
DX: Z01.818 Encounter for other preprocedural examination (principal); K43.6 Other and unspecified ventral hernia with obstruction, without gangrene
CPT/HCPCS: 36415; 85025; 86850; 86900; 86901; 93005

== ENCOUNTER 2024-07-15 05:39 | Day surgery (SDC) | payer MEDICARE ==
[2024-07-15] MEDS: ACETAMINOPHEN TAB 500 MG TAB PO PRN (06:44)
[2024-07-15] MEDS: ONDANSETRON 4 MG/2 ML VIAL IVP ONE (06:45)
[2024-07-15] MEDS: DEXAMETHASONE SOD PHOSPHATE 4 MG/ML 1 ML VIAL IV ONE (06:46)
[2024-07-15] MEDS: HEPARIN SODIUM,PORCINE 5,000 UNIT/ML 1 ML VIAL SQ PRN (06:47)
[2024-07-15] MEDS: LACTATED RINGERS 1,000 ML IV SCH (06:47)
[2024-07-15] MEDS: IV FLUID CONTINUATION 1,000 ML IV ONE (06:57)
[2024-07-15] MEDS ORDERED: MIDAZOLAM 2 MG/2 ML VIAL IV PRN (07:00)
[2024-07-15 07:22] LABS: INR 1.1 (<1.2); Prothrombin Time 11.8 sec (10.0-12.5)
[2024-07-15] MEDS: TAMSULOSIN 0.4 MG CAP.ER.24H PO STA (07:22)
[2024-07-15] MEDS ORDERED: SUCCINYLCHOLINE CHLORIDE 200 MG/10 ML VIAL IV ONE (07:25)
[2024-07-15] MEDS ORDERED: PROPOFOL 10 MG/ML 20 ML VIAL IV ONE (07:25)
[2024-07-15] MEDS ORDERED: NEOSTIGMINE 1 MG/ML 10 ML VIAL ONE (07:25)
[2024-07-15] MEDS ORDERED: GLYCOPYRROLATE 0.2 MG/ML 2 ML VIAL ONE (07:25)
[2024-07-15] MEDS ORDERED: METOPROLOL TARTRATE 5 MG/5 ML VIAL IVP ONE (07:25)
[2024-07-15] MEDS ORDERED: fentaNYL (PF) 50 MCG/ML 2 ML AMP ONE (07:25)
[2024-07-15] MEDS ORDERED: LIDOCAINE 1% INJ 10MG/ML (20 ML MDV) ONE (07:25)
[2024-07-15] MEDS ORDERED: ROCURONIUM 10 MG/ML (5 ML VIAL) IV ONE (07:25)
--- NOTE | 2024-07-15 07:29 | P.GSHP ---
History of Present Illness H&P Date: 07/15/24 Chief Complaint: Left spigelian hernia 84-year-old male here for elective hernia repair. Patient being followed in the outpatient setting and also was admitted a few weeks ago for GI bleed and possible diverticulitis. Patient with complaints of gradual swelling left abdominal wall. CAT scan confirms spigelian hernia. On the patient's first CAT scan there was some degree of partial bowel obstruction noted. Small bowel was no longer in the hernia sac on the second CAT scan. Past Medical History Past Medical History: Atrial Fibrillation, Deep Vein Thrombosis (DVT), Hyperlipidemia, Hypertension, Myocardial Infarction ([place]) Additional Past Medical History / Comment(s): hernia Last Myocardial Infarction Date:: unk History of Any Multi-Drug Resistant Organisms: None Reported Past Surgical History: Heart Catheterization With Stent, Hernia Repair, Joint Replacement, Orthopedic Surgery Additional Past Surgical History / Comment(s): hip replacement, has a filter implanted re dvt in leg, lft leg fx repaired, yanique cataracts removed Past Anesthesia/Blood Transfusion Reactions: No Reported Reaction Date of Last Stent Placement:: unk Smoking Status: Former smoker - Past Family History Father History Unknown: Yes Medications and Allergies Home Medications Medication Instructions Recorded Confirmed Type Atorvastatin [Lipitor] 80 mg PO HS 06/16/24 07/12/24 History Fluticasone/Umeclidin/Vilanter 1 puff INHALATION RT-DAILY 06/16/24 07/12/24 History [Sapna Ellipta 100-62.5-25] Metoprolol Succinate [Metoprolol 25 mg PO HS 06/16/24 07/12/24 History Succinate ER] Warfarin [Coumadin] 3 mg PO SUMOWETHSA 06/16/24 07/12/24 History Warfarin [Coumadin] 4.5 mg PO TU 06/16/24 07/12/24 History amLODIPine [Norvasc] 5 mg PO DAILY 06/16/24 07/12/24 History Allergies Allergy/AdvReac Type Severity Reaction Status Date / Time No Known Allergies Allergy Verified 07/15/24 06:15 Surgical - Exam Vital Signs Temp Pulse Resp BP Pulse Ox 97.5 F L 69 16 120/65 95 07/15/24 06:31 07/15/24 06:31 07/15/24 06:31 07/15/24 06:31 07/15/24 06:31 Physical exam: General: Well-developed, well-nourished HEENT: Normocephalic, sclerae nonicteric Abdomen: Nontender, nondistended, left lower abdominal wall bulge with mild t enderness Extremities: No edema Neuro: Alert and oriented Assessment and Plan (1) Spigelian hernia Narrative/Plan: 84-year-old male with left spigelian hernia. Will proceed with laparoscopic da Miladys assisted repair left spigelian hernia with mesh, possible open, possible bilateral, possible inguinal hernia if noted. Risks of bleeding, infection, recurrence, chronic pain, bladder and bowel injury, numbness, conversion to an open procedure, scarring, and anesthesia related complications were discussed. The correlation between hernia recurrence, obesity and smoking were reviewed in detail. The patient understands and wishes to proceed. Current Visit: Yes Status: Acute Code(s): K43.9 - VENTRAL HERNIA WITHOUT OBSTRUCTION OR GANGRENE SNOMED Code(s): 188845588
[2024-07-15] MEDS: ceFAZolin 2 GM in DEXTROSE 5% IN WATER 50 ML IVPB PRN (07:30)
[2024-07-15] MEDS: BUPIVACAINE (PF) 0.25% 30 ML VIAL SQ ONE (07:52)
[2024-07-15 09:25] VITALS: TEMP 97.4
[2024-07-15] MEDS: HYDROmorphone 0.5 MG/0.5 ML SYRINGE IVP PRN (09:27)
--- NOTE | 2024-07-15 09:34 | P.OP ---
Date of Procedure: 07/15/24 Procedure(s) Performed: PREOPERATIVE DIAGNOSIS: Incarcerated spigelian hernia POSTOPERATIVE DIAGNOSIS: Same PROCEDURE: Laparoscopic da Miladys robotic assisted repair left spigelian hernia with mesh SURGEON: Dr. Willis ANESTHESIA: General EBL: 10 cc OPERATIVE PROCEDURE DETAILS: Patient was placed in the operating table in the supine position. The patient was placed under general anesthesia. The abdomen was prepped and draped in usual sterile fashion. A small curvilinear supraumbilical incision was made. The fascia was retracted anteriorly with Luba forceps. The Veress needle was inserted. The saline drop test was normal. Insufflation took place to 15 mmHg. An 8 mm trocar was placed into the peritoneal cavity. 2 additional 8 mm trochars were placed in the right upper quadrant and left upper quadrant under visualization. The robotic arms were then brought in and docked into place. The fenestrated bipolar was used in the left arm and the laparoscopic reddy was utilized in the right arm. A 30Â° 8 mm scope was used in the up position. The peritoneal cavity was inspected. The patient had a fairly large spigelian hernia on the left-hand side. No visible inguinal hernias were noted. There was evidence of mesh in the preperitoneal space on the right-hand side. The peritoneum was incised in a horizontal fashion cephalad to the hernia defect. Following that careful dissection of the preperitoneal space took place. This took place using both electrocautery, sharp dissection but primarily blunt dissection. Once the sac was fully dissected and I had the fascia circumferentially cleared for a distance of approximately 6 cm on either side the defect was closed using a running nonabsorbable #1 strata fix suture. This closed the defect nicely. The defect in the fascia measured 3 x 4 cm. The ProGrip mesh was then cut in an oval shape and placed over the defect. This was sutured in place using a short running 3-0 absorbable V-Loc suture superiorly. The peritoneal defect was then closed using a absorbable 2-0 VLok suture. The hernia sac was incorporated into the perit littlejohn closure to help prevent future recurrence. The pneumoperitoneum was then evacuated. The skin of all 3 sites was closed using a 4-0 Monocryl stitch. Skin glue was then applied. HERNIA CHARACTERISTICS: Length: 3 cm Width: 4 cm Type: Spigelian TYPE OF MESH USED: ProGrip 15 x 10 cut down LOCATION OF MESH: Preperitoneal Sublay FIXATION: 3 oh V-Loc absorbable PREOPERATIVE DISCUSSION ON SMOKING CESSASTION: Yes PREOPERATIVE DISCUSSION ON MORBID OBESITY: Yes PREOPERATIVE DISCUSSION ON APPROPRIATE USE OF NARCOTIC USE: Yes PREOPERATIVE EDUCATION: Multi Modal, Smoking Cessation and Weight Loss with BMI over 35. DISPOSITION: Stable to recovery room
[2024-07-15] MEDS: LACTATED RINGERS 1,000 ML IV ONE (10:03)
[2024-07-15 11:42] VITALS: RESP 18
[2024-07-15 12:26] VITALS: BP 127/63; PULSE 67
== END 2024-07-15 12:29 | disposition home or self-care (01) ==
LOC: OR 05:39
PROVIDERS: ATTEND Surgery
DX: K43.9 Ventral hernia without obstruction or gangrene (principal); I48.91 Unspecified atrial fibrillation; I25.2 Old myocardial infarction; I10 Essential (primary) hypertension; E78.5 Hyperlipidemia, unspecified; Z87.891 Personal history of nicotine dependence; Z86.718 Personal history of other venous thrombosis and embolism; Z98.890 Other specified postprocedural states; Z79.02 Long term (current) use of antithrombotics/antiplatelets; Z79.899 Other long term (current) drug therapy
CPT/HCPCS: 85610; 49593; C1781; J0330; J1644; J1100; J2710; J0690; J2405; J2003; J3010; J2704; J1171; J0665; J1596